=== PATIENT | male | born 1995 | race Caucasian/White ===

== ENCOUNTER 2019-06-25 18:56 | Emergency (ER) | payer SELFPAY ==
[2019-06-25] MEDS ORDERED: NA CHLORIDE 0.9% 1,000 ML ONE ×2 (19:18→21:08)
[2019-06-25 19:55] LABS: Urine Blood NEGATIVE (NEG); Urine Glucose NEGATIVE (NEG); Urine Protein NEGATIVE (NEG); Urine Specific Gravity <1.005 (1.005-1.030)
[2019-06-25 19:59] LABS: Barbiturates NEGATIVE (NEGATIVE); Benzodiazepines NEGATIVE (NEGATIVE); Cocaine NEGATIVE (NEGATIVE); METHAMPHETAM NEGATIVE (NEGATIVE); Methadone NEGATIVE (NEGATIVE); Opiates NEGATIVE (NEGATIVE); Phencyclidine NEGATIVE (NEGATIVE); THC Cannibis NEGATIVE (NEGATIVE)
[2019-06-25 20:00] LABS: Absolute Lymphocytes (CBC) 1.1 K/uL (0.7-4.9); Basophils % 0.5 % (0-1.3); Hematocrit 39.4 % (39.6-49.0); Lymphocytes % 12.4 % (15.3-44.8); MPV 7.5 fL (7.6-11.3); RBC Red Blood Cell Count 4.52 M/uL (4.33-5.43)
[2019-06-25 20:21] LABS: Protime INR 1.16
[2019-06-25] MEDS ORDERED: METOPROLOL TARTRATE 5 MG/5 ML INJ IV ONE (21:08)
[2019-06-25 21:20] LABS: ALT/SGPT 35 U/L (12-78); AST/SGOT 26 U/L (15-37); Albumin 4.1 g/dL (3.4-5.0); Alkaline Phosphatase 63 U/L (45-117); BUN Blood Urea Nitrogen 10 mg/dL (7-18); Bicarbonate 24 mmol/L (21-32); Bilirubin Direct < 0.1 mg/dL (0-0.2); Bilirubin Total 0.4 mg/dL (0.2-1.0); Glucose Level 96 mg/dL (74-106); Potassium 3.4 mmol/L (3.5-5.1); Protein, Total 6.9 g/dL (6.4-8.2); Sodium Level 131 mmol/L (136-145)
--- NOTE | 2019-06-25 22:21 | ER ---
Nurse's Notes [facility] Name: Ventura Albert Age: 23 yrs Sex: Male : 1995 Arrival Date: 06/25/2019 Time: 18:57 Bed 4 Private MD: Diagnosis: Weakness;Dehydration;Confusion Presentation: 06/25 18:57 Presenting complaint: EMS states: friend says he is been weak, crampy and shaking mg2 today. he's been unable to sleep for the past 3 days. BGL- 98 mg/dl. EKG - STach 130 bpm, BP of 240/120mmHg. denies chest pain. Transition of care: patient was not received from another setting of care. Onset of symptoms was June 25, 2019. Risk Assessment: Do you want to hurt yourself or someone else? Patient reports no desire to harm self or others. Initial Sepsis Screen: Does the patient meet any 2 criteria? No. Patient's initial sepsis screen is negative. Does the patient have a suspected source of infection? No. Patient's initial sepsis screen is negative. Care prior to arrival: None. 18:57 Method Of Arrival: EMS: [facility] mg2 18:57 Acuity: VANESSA 2 mg2 Historical: - Allergies: 19:02 No Known Allergies; mg2 - Home Meds: 19:02 None [Active]; mg2 - PMHx: 19:02 None; mg2 - PSHx: 19:02 None; mg2 - Immunization history:: Flu vaccine is not up to date. - Social history:: Smoking status: unknown Patient/guardian denies using alcohol, street drugs, IV drugs. - Ebola Screening: : No symptoms or risks identified at this time. Screenin:02 Abuse screen: Denies threats or abuse. Denies injuries from another. Nutritional mg2 screening: No deficits noted. Tuberculosis screening: No symptoms or risk factors identified. 19:10 Fall Risk IV access (20 points). mg2 Assessment: 19:07 General: Appears in no apparent distress. comfortable, Behavior is calm, cooperative. mg2 Pain: Denies pain. Neuro: Level of Consciousness is awake, alert, obeys commands, Oriented to person, place, time, situation. Cardiovascular: Capillary refill < 3 seconds Patient's skin is warm and dry. Respiratory: Airway is patent Respiratory effort is even, unlabored, Respiratory pattern is regular, symmetrical. GI: No signs and/or symptoms were reported involving the gastrointestinal system. : No signs and/or symptoms were reported regarding the genitourinary system. EENT: No signs and/or symptoms were reported regarding the EENT system. Derm: Skin is intact, is healthy with good turgor, Skin is pink, warm \T\ dry. normal. Musculoskeletal: Circulation, motion, and sensation intact. Capillary refill < 3 seconds, shaking on both limbs Reports weakness in whole body. 19:35 Reassessment: friends says that he has been drinking beer for the past 2 days. mg2 22:05 Reassessment: Patient and/or family updated on plan of care and expected duration. Pain ea level reassessed. Patient is alert, oriented x 3, equal unlabored respirations, skin warm/dry/pink. pt ambulated approximately 30 feet without assitance, pt tolerated well. 22:22 Reassessment: patient up for discharge once iv fluid is completed. mg2 23:14 Reassessment: Patient and/or family updated on plan of care and expected duration. Pain ea level reassessed. Patient is alert, oriented x 3, equal unlabored respirations, skin warm/dry/pink. Discharge instruction given to patient, verbalized the understanding of instruction. Pt left ED ambulatory accompanied by friend. Pt tolerating well. Vital Signs: 19:01 BP 178 / 113; Pulse 118; Resp 18; Temp 98.6; Pulse Ox 100% on R/A; Weight 127.01 kg; mg2 Height 6 ft. 1 in. (185.42 cm); Pain 0/10; 19:32 BP 163 / 99; Pulse 117; Resp 18; Pulse Ox 100% on R/A; Pain 0/10; mg2 21:04 BP 173 / 84; Pulse 123; Pulse Ox 99% ; ea 21:18 BP 159 / 99; Pulse 109; Resp 17; Pulse Ox 100% ; ea 22:06 BP 169 / 94; Pulse 108; Resp 17; Pulse Ox 99% ; ea 22:44 BP 159 / 87; Pulse 95; Resp 17; Pulse Ox 99% on R/A; ea 23:03 BP 140 / 70; Pulse 95; Resp 16; Pulse Ox 99% on R/A; ea 19:01 Body Mass Index 36.94 (127.01 kg, 185.42 cm) mg2 ED Course: 18:57 Patient arrived in ED. mg2 18:59 Triage completed. mg2 19:02 Arm band placed on. mg2 19:07 Richard Frank, RN is Primary Nurse. mg2 19:08 No provider procedures requiring assistance completed. Maintain EMS IV. Dressing mg2 intact. Good blood return noted. Site clean \T\ dry. Gauge \T\ site: 18\T\LAC. IV is patent, is intact. 19:10 Patient has correct armband on for positive identification. mg2 19:13 Elvis Baig MD is Attending Physician. kdr 23:13 IV discontinued, intact, bleeding controlled, No redness/swelling at site. Pressure ea dressing applied. Administered Medications: 19:16 Drug: NS 0.9% 1000 ml Route: IV; Rate: 1 bolus; Site: left antecubital; mg2 22:54 Follow up: Response: No adverse reaction; IV Status: Completed infusion; IV Intake: mg2 1000ml 21:18 Drug: NS 0.9% 1000 ml Route: IV; Rate: 1 bolus; Site: left antecubital; ea 23:16 Follow up: Response: No adverse reaction; IV Status: Completed infusion; IV Intake: ea 800ml 22:15 Drug: Lopressor 5 mg Route: IVP; Site: left antecubital; ea 22:54 Follow up: Response: No adverse reaction; Blood pressure is lowered mg2 Intake: 22:54 IV: 1000ml; Total: 1000ml. mg2 23:16 IV: 800ml; Total: 1800ml. ea Output: 19:49 Urine: 450ml (Voided); Total: 450ml. mg2 20:34 Urine: 800ml (Voided); Total: 1250ml. mg2 Outcome: 22:20 Discharge ordered by . kdr 23:15 Discharged to home ambulatory, with friend. ea 23:15 Condition: stable 23:15 Discharge instructions given to patient. 23:15 Instructed on discharge instructions, Demonstrated understanding of instructions, follow-up care. 23:16 Patient left the ED. ea Signatures: Elvis Baig MD MD kdr Antunez, Elena, RN RN ea Gardose, Michele, FLAQUITO RN mg2 Corrections: (The following items were deleted from the chart) 19:00 18:57 Presenting complaint: EMS states: friend says he is been weak, crampy and shaking mg2 today. he's been unable to sleep for the past 3 days. BGL- 98 mg/dl. mg2 19:01 18:57 Acuity: VANESSA 3 mg2 mg2
--- NOTE | 2019-06-25 22:22 | EDPHYS ---
Physician Documentation [facility] Name: Ventura Albert Age: 23 yrs Sex: Male : 1995 Arrival Date: 06/25/2019 Time: 18:57 Bed 4 Private MD: ED Physician Elvis Baig HPI: 06/25 21:01 This 23 yrs old Male presents to ER via EMS with complaints of weakness - . kdr 21:01 The patient states that he has been feeling poorly. His friends thinks that he has been kdr drinking heavily for the past three days, possibly related to the anniversary of his dad's . 21:29 Onset: The symptoms/episode began/occurred at an unknown time. Severity of symptoms: At kdr their worst the symptoms were mild moderate just prior to arrival, in the emergency department the symptoms are unchanged. The patient has not experienced similar symptoms in the past. The patient has not recently seen a physician. Historical: - Allergies: 19:02 No Known Allergies; mg2 - Home Meds: 19:02 None [Active]; mg2 - PMHx: 19:02 None; mg2 - PSHx: 19:02 None; mg2 - Immunization history:: Flu vaccine is not up to date. - Social history:: Smoking status: unknown Patient/guardian denies using alcohol, street drugs, IV drugs. - Ebola Screening: : No symptoms or risks identified at this time. ROS: 21:29 Constitutional: Negative for fever, chills, and weight loss, Eyes: Negative for injury, kdr pain, redness, and discharge, Neck: Negative for injury, pain, and swelling, Cardiovascular: Negative for chest pain, palpitations, and edema, Respiratory: Negative for shortness of breath, cough, wheezing, and pleuritic chest pain, Abdomen/GI: Negative for abdominal pain, nausea, vomiting, diarrhea, and constipation, Back: Negative for injury and pain, MS/Extremity: Negative for injury and deformity, Skin: Negative for injury, rash, and discoloration, Neuro: Negative for headache, numbness, tingling, and seizure activity - He has had confusion and weakness Psych: Negative for depression, anxiety, suicide ideation, homicidal ideation, and hallucinations, Allergy/Immunology: Negative for hives, rash, and allergies, Endocrine: Negative for neck swelling, polydipsia, polyuria, polyphagia, and marked weight changes, Hematologic/Lymphatic: Negative for swollen nodes, abnormal bleeding, and unusual bruising. Exam: 21:29 Constitutional: This is a well developed, well nourished patient who is awake, alert, kdr and in no acute distress. Head/Face: Normocephalic, atraumatic. Eyes: Pupils equal round and reactive to light, extra-ocular motions intact. Lids and lashes normal. Conjunctiva and sclera are non-icteric and not injected. Cornea within normal limits. Periorbital areas with no swelling, redness, or edema. Neck: Trachea midline, no thyromegaly or masses palpated, and no cervical lymphadenopathy. Supple, full range of motion without nuchal rigidity, or vertebral point tenderness. No Meningismus. Chest/axilla: Normal chest wall appearance and motion. Nontender with no deformity. No lesions are appreciated. Cardiovascular: Regular rate and rhythm with a normal S1 and S2. No gallops, murmurs, or rubs. Normal PMI, no JVD. No pulse deficits. Respiratory: Lungs have equal breath sounds bilaterally, clear to auscultation and percussion. No rales, rhonchi or wheezes noted. No increased work of breathing, no retractions or nasal flaring. Abdomen/GI: Soft, non-tender, with normal bowel sounds. No distension or tympany. No guarding or rebound. No evidence of tenderness throughout. Back: No spinal tenderness. No costovertebral tenderness. Full range of motion. Skin: Warm, dry with normal turgor. Normal color with no rashes, no lesions, and no evidence of cellulitis. MS/ Extremity: Pulses equal, no cyanosis. Neurovascular intact. Full, normal range of motion. Neuro: Awake and alert, GCS 15, oriented to person, place, time, and situation. Cranial nerves II-XII grossly intact. Motor strength 5/5 in all extremities. Sensory grossly intact. Cerebellar exam normal. Normal gait. Psych: Awake, alert, with orientation to person, place and time. Behavior, mood, and affect are within normal limits. 21:29 Cardiovascular: Rate: tachycardic, Rhythm: regular, Pulses: no pulse deficits are appreciated. Vital Signs: 19:01 BP 178 / 113; Pulse 118; Resp 18; Temp 98.6; Pulse Ox 100% on R/A; Weight 127.01 kg; mg2 Height 6 ft. 1 in. (185.42 cm); Pain 0/10; 19:32 BP 163 / 99; Pulse 117; Resp 18; Pulse Ox 100% on R/A; Pain 0/10; mg2 21:04 BP 173 / 84; Pulse 123; Pulse Ox 99% ; ea 21:18 BP 159 / 99; Pulse 109; Resp 17; Pulse Ox 100% ; ea 22:06 BP 169 / 94; Pulse 108; Resp 17; Pulse Ox 99% ; ea 22:44 BP 159 / 87; Pulse 95; Resp 17; Pulse Ox 99% on R/A; ea 23:03 BP 140 / 70; Pulse 95; Resp 16; Pulse Ox 99% on R/A; ea 19:01 Body Mass Index 36.94 (127.01 kg, 185.42 cm) mg2 MDM: 21:29 Data reviewed: vital signs, nurses notes, lab test result(s), radiologic studies. kdr Counseling: I had a detailed discussion with the patient and/or guardian regarding: the historical points, exam findings, and any diagnostic results supporting the discharge/admit diagnosis, lab results, radiology results. 22:20 Patient medically screened. kdr 06/25 19:14 Order name: Acetaminophen; Complete Time: 21:24 06/25 19:14 Order name: Basic Metabolic Panel; Complete Time: 21:24 06/25 19:14 Order name: CBC with Diff; Complete Time: 21:00 06/25 19:14 Order name: ETOH Level; Complete Time: 21:00 06/25 19:14 Order name: Hepatic Function; Complete Time: 21:24 06/25 19:14 Order name: PT-INR; Complete Time: 21:00 06/25 19:14 Order name: Ptt, Activated; Complete Time: 21:00 06/25 19:14 Order name: Salicylate; Complete Time: 21:00 06/25 19:14 Order name: Urine Drug Screen; Complete Time: 20:03 06/25 19:14 Order name: EKG; Complete Time: 19:15 06/25 19:33 Order name: Urine Dipstick--Ancillary (enter results); Complete Time: 20:03 em1 06/25 19:14 Order name: EKG - Nurse/Tech; Complete Time: 19:35 06/25 19:14 Order name: IV Saline Lock; Complete Time: 19:32 06/25 19:14 Order name: Labs collected and sent; Complete Time: 19:32 06/25 19:14 Order name: Urine Dipstick-Ancillary (obtain specimen); Complete Time: 19:31 06/25 19:58 Order name: Labs - recollect needed; Complete Time: 20:10 em1 Administered Medications: 19:16 Drug: NS 0.9% 1000 ml Route: IV; Rate: 1 bolus; Site: left antecubital; mg2 22:54 Follow up: Response: No adverse reaction; IV Status: Completed infusion; IV Intake: mg2 1000ml 21:18 Drug: NS 0.9% 1000 ml Route: IV; Rate: 1 bolus; Site: left antecubital; ea 23:16 Follow up: Response: No adverse reaction; IV Status: Completed infusion; IV Intake: ea 800ml 22:15 Drug: Lopressor 5 mg Route: IVP; Site: left antecubital; ea 22:54 Follow up: Response: No adverse reaction; Blood pressure is lowered mg2 Disposition: 06/25/19 22:20 Discharged to Home. Impression: Weakness, Dehydration, Confusion. - Condition is Stable. - Discharge Instructions: Weakness, [id number], Dehydration, Adult, [id number]. - Medication Reconciliation Form, Thank You Letter, Work release form, Family Work Release form. - Follow up: Private Physician; When: 2 - 3 days; Reason: If symptoms return, Further diagnostic work-up, Recheck today's complaints, Continuance of care, Re-evaluation by your physician. - Problem is new. - Symptoms have improved. Signatures: Dispatcher [employer] EDMS Elvis Baig MD MD kdr Martinez, Cy em1 Ghada Wilson, FLAQUITO RN ea Jose Manuel España MD MD gs Gardose, Michele RN RN mg2 Corrections: (The following items were deleted from the chart) 21:30 21:01 The patient states that he has been feeling poorly. His friends thanks that he kdr has been drinking hevilay for the past three days, possibly related to . kdr 23:16 22:20 06/25/2019 22:20 Discharged to Home. Impression: Weakness; Dehydration; ea Confusion. Condition is Stable. Forms are Medication Reconciliation Form, Thank You Letter, Antibiotic Education, Prescription Opioid Use. Follow up: Private Physician; When: 2 - 3 days; Reason: If symptoms return, Further diagnostic work-up, Recheck today's complaints, Continuance of care, Re-evaluation by your physician. Problem is new. Symptoms have improved. kdr
[2019-06-26 01:05] VITALS: TEMP 98.6
[2019-06-26 01:10] VITALS: O2SAT 99
[2019-06-26 01:12] VITALS: BP 140/70
--- NOTE | 2019-06-26 12:55 | EKG ---
Test Date: 2019-06-25 Test Time: 19:39:15 Communications Program Manager: AER MEASUREMENT RESULTS: Intervals: Rate: 118 VT: 164 QRSD: 106 QT: 330 QTc: 462 Dunbar: P: 63 VT: 164 QRS: 53 T: 36 INTERPRETIVE STATEMENTS: Sinus tachycardia Otherwise normal ECG No previous ECG available for comparison Electronically Signed On 06-26-19 12:54:14 CDT by Scott Matias
== END 2019-06-25 23:16 | disposition home or self-care (01) ==
LOC: ER 18:56
DX: E86.0 Dehydration (principal); R41.0 Disorientation, unspecified
CPT/HCPCS: 36415; 80048; 80076; 80307; 80320; 80329; 81003; 85025; 85610; 85730; 93005; 96361; 96374; 99283; J7030